=== PATIENT | female | born 1975 | race Caucasian/White ===

== ENCOUNTER 2016-08-16 23:49 | Emergency (ER) | payer SELFPAY ==
[~2016-08-16] VITALS: Ht 172.7 cm; Wt 90.0 kg
[2016-08-16 23:52] VITALS: TEMP 97.6
[2016-08-16] MEDS ORDERED: LOPRESSOR 225 MG/TAB PO (23:57)
[2016-08-16] MEDS ORDERED: CARDIZEM 30MG T30 MG PO (23:57)
[2016-08-17 01:14] LABS: HEMOGLOBIN 12.9 g/dl (12.5-16.0); MEAN CELL VOLUME 88 fl (80.0-100.0); MEAN CORPUSCULAR HEMOGLOBIN 28 pg (27.0-31.0); MEAN CORPUSCULAR HGB CONC 32 g/dl (33.0-37.0); MEAN PLATELET VOLUME 8.8 fl (7.4-10.4); PLATELET COUNT 553 K/mm3 (130-400); RED BLOOD COUNT 4.56 M/mm3 (4.10-5.30); REDCELL DISTRIBUTION WIDTH-CV 16.5 % (11.5-14.5); WHITE BLOOD COUNT 16.9 K/mm3 (4.8-10.8)
[2016-08-17 01:15] LABS: ADD PATHOLOGY DIFF REVIEW NO
[2016-08-17 01:24] LABS: ANISOCYTOSIS 1+; BAND 4 % (0-10); EOSINOPHIL 3 % (0-4); NEUTROPHILS 70 % (42.0-75.2); PLATELET ESTIMATE INCREASED (NORMAL); TOTAL CELLS COUNTED 100
[2016-08-17 01:33] LABS: ADJUSTED CALCIUM 10.1 mg/dL (8.4-10.2); ALBUMIN 3.5 gm/dL (3.5-5.0); BILIRUBIN,TOTAL 1.2 mg/dL (0.0-1.0); CALCIUM 9.7 mg/dL (8.4-10.2); TOTAL PROTEIN 8.1 gm/dL (6.4-8.2)
[2016-08-17 01:35] LABS: URIC ACID 7.6 mg/dL (2.5-6.2)
[2016-08-17 01:36] LABS: PH 5 (5-8); URINE APPEARANCE Cloudy; URINE BACTERIA Rare /hpf; URINE BILIRUBIN Negative (NEGATIVE); URINE BLOOD 1+ (NEGATIVE); URINE COLOR Amber; URINE GLUCOSE Negative (NEGATIVE); URINE KETONE Negative (NEGATIVE); URINE RBC >50 /hpf; URINE UROBILINOGEN >=4.0 mg/dL (NEGATIVE); URINE WBC >50 /hpf
[2016-08-17 01:39] LABS: ERYTHROCYTE SEDIMENTATION RATE 92 mm/hr (0-20)
[2016-08-17] MEDS ORDERED: CEPHALEXIN500 M1 PO (03:13)
[2016-08-17 03:25] VITALS: BP 115/91; PULSE 86
== END 2016-08-17 03:25 | disposition home or self-care (01) ==
LOC: COL.ER 23:49
PROVIDERS: Nurse Practitioner
DX: N39.0 Urinary tract infection, site not specified (principal); B96.89 Other specified bacterial agents as the cause of diseases classified elsewhere; M25.551 Pain in right hip; M25.562 Pain in left knee; M25.521 Pain in right elbow; F12.99 Cannabis use, unspecified with unspecified cannabis-induced disorder; I10 Essential (primary) hypertension; I50.9 Heart failure, unspecified; F17.210 Nicotine dependence, cigarettes, uncomplicated; Z90.49 Acquired absence of other specified parts of digestive tract

== ENCOUNTER 2016-08-18 23:35 | Inpatient (IN) | payer SELFPAY ==
[~2016-08-18] VITALS: Ht 172.7 cm; Wt 84.5 kg
[~2016-08-18 23:35] MED LIST: CARDIZEM 30MG T30 MG PO; CEPHALEXIN500 M1 PO; LOPRESSOR 225 MG/TAB PO
[2016-08-19] VITALS (738 sets, daily range): BP systolic 112–147; BP diastolic 70–111; PULSE 77–131; TEMP 97.4–99.2; O2SAT 77–100
[2016-08-19 00:01] LABS: BASO # 0.1 (0.0-0.2); BASO % 0.3 % (0.0-2.0); EOS # 0.1 (0.0-0.7); EOS % 0.3 % (0-4.0); GRAN # 14.2 (1.4-6.5); GRAN % 77.6 % (42.2-75.2); HEMATOCRIT 39.4 % (37.0-47.0); HEMOGLOBIN 12.9 g/dl (12.5-16.0); LYMPH % 10.8 % (20.0-51.0); MEAN CELL VOLUME 87 fl (80.0-100.0); MEAN CORPUSCULAR HEMOGLOBIN 29 pg (27.0-31.0); MEAN CORPUSCULAR HGB CONC 33 g/dl (33.0-37.0); MEAN PLATELET VOLUME 8.5 fl (7.4-10.4); MONO # 1.6 (0.1-0.6); MONO % 8.9 % (1.7-9.3); RED BLOOD COUNT 4.52 M/mm3 (4.10-5.30); REDCELL DISTRIBUTION WIDTH-CV 16.4 % (11.5-14.5); WHITE BLOOD COUNT 18.3 K/mm3 (4.8-10.8)
[2016-08-19 00:06] LABS: PLATELET COUNT 686 K/mm3 (130-400)
[2016-08-19 00:08] LABS: INR 1.1 (0.8-3.0); PROTHROMBIN TIME 12.6 SECONDS (9.7-12.8)
[2016-08-19 00:11] LABS: PARTIAL THROMBOPLASTIN TIME 33.3 SECONDS (26.0-37.0)
[2016-08-19 00:13] LABS: ALANINE AMINOTRANSFERASE 16 U/L (9-52); ALBUMIN 3.5 gm/dL (3.5-5.0); ALKALINE PHOSPHATASE 286 U/L (50-136); ANION GAP 13 mmol/L (7-16); BILIRUBIN,TOTAL 1.4 mg/dL (0.0-1.0); BLOOD UREA NITROGEN 14 mg/dL (7-17); CALCIUM 9.6 mg/dL (8.4-10.2); CARBON DIOXIDE 26 mmol/L (22-30); CHLORIDE 97 mmol/L (98-107); CREATININE, serum 0.69 mg/dL (0.52-1.25); GLUCOSE 214 mg/dL (74-106); POTASSIUM 4.2 mmol/L (3.4-5.0); SODIUM 137 mmol/L (137-145); TOTAL PROTEIN 8.1 gm/dL (6.4-8.2)
[2016-08-19 00:23] LABS: TROPONIN-I < 0.012 ng/mL (0.000-0.034)
[2016-08-19 00:31] LABS: C-REACTIVE PROTEIN 24.9 mg/dL (0.0-0.9)
[2016-08-19 02:15] LABS: PH 5 (5-8); URINE APPEARANCE Cloudy; URINE BACTERIA Rare /hpf; URINE BILIRUBIN Negative (NEGATIVE); URINE BLOOD Negative (NEGATIVE); URINE COLOR Amber; URINE GLUCOSE Negative (NEGATIVE); URINE KETONE Negative (NEGATIVE); URINE RBC >50 /hpf; URINE UROBILINOGEN >=4.0 mg/dL (NEGATIVE); URINE WBC >50 /hpf
[2016-08-19] MEDS ORDERED: ASPIRIN 81M81 MG/TA2 PO (03:53)
[2016-08-19] MEDS ORDERED: CARDIZEM120 MG PO (03:57)
[2016-08-19 06:34] LABS: HEMATOCRIT 37.4 % (37.0-47.0); MEAN CELL VOLUME 90 fl (80.0-100.0); MEAN CORPUSCULAR HEMOGLOBIN 29 pg (27.0-31.0); MEAN CORPUSCULAR HGB CONC 32 g/dl (33.0-37.0); MEAN PLATELET VOLUME 8.7 fl (7.4-10.4); PLATELET COUNT 630 K/mm3 (130-400); RED BLOOD COUNT 4.18 M/mm3 (4.10-5.30); REDCELL DISTRIBUTION WIDTH-CV 16.3 % (11.5-14.5); WHITE BLOOD COUNT 17.1 K/mm3 (4.8-10.8)
[2016-08-19 06:39] LABS: INR 1.1 (0.8-3.0); PROTHROMBIN TIME 12.7 SECONDS (9.7-12.8)
[2016-08-19 06:44] LABS: ADD PATHOLOGY DIFF REVIEW NO
[2016-08-19 06:49] LABS: ADJUSTED CALCIUM 10.1 mg/dL (8.4-10.2); BILIRUBIN,TOTAL 0.9 mg/dL (0.0-1.0); CALCIUM 9.3 mg/dL (8.4-10.2); CREATININE, serum 0.62 mg/dL (0.52-1.25); POTASSIUM 3.7 mmol/L (3.4-5.0); TOTAL PROTEIN 7.2 gm/dL (6.4-8.2)
[2016-08-19 06:58] LABS: TROPONIN-I 0.016 ng/mL (0.000-0.034)
[2016-08-19 07:03] LABS: BAND 17 % (0-10); NEUTROPHILS 67 % (42.0-75.2); TOTAL CELLS COUNTED 100
[2016-08-19 07:06] LABS: PLATELET ESTIMATE INCREASED (NORMAL)
[2016-08-19 13:23] LABS: SYNOVIAL FL. MONONUCLEAR 10.6 % (0-75); SYNOVIAL FL. POLYMORPHONUCLEAR 89.4 % (0-25)
[2016-08-19 13:31] LABS: SYNOVIAL FLUID APPEARANCE HAZY; SYNOVIAL FLUID COLOR RED
[2016-08-19 13:32] LABS: SYNOVIAL FL. MONONUCLEAR 9.5 % (0-75); SYNOVIAL FL. POLYMORPHONUCLEAR 90.5 % (0-25); SYNOVIAL FLUID APPEARANCE CLEAR; SYNOVIAL FLUID COLOR YELLOW
[2016-08-19 13:48] LABS: SYNOVIAL FLUID WBC 12840 /mm3 (200-600)
[2016-08-19 13:49] LABS: SYNOVIAL FLUID WBC 15410 /mm3 (200-600)
[2016-08-20] VITALS (1170 sets, daily range): BP systolic 149–167; BP diastolic 99–129; PULSE 106–132; TEMP 97.5–98.9; O2SAT 51–100
[2016-08-20 05:55] LABS: MEAN CELL VOLUME 92 fl (80.0-100.0); MEAN CORPUSCULAR HGB CONC 31 g/dl (33.0-37.0); MEAN PLATELET VOLUME 8.9 fl (7.4-10.4); PLATELET COUNT 631 K/mm3 (130-400); RED BLOOD COUNT 3.41 M/mm3 (4.10-5.30)
[2016-08-20 05:58] LABS: HEMATOCRIT 31.5 % (37.0-47.0); MEAN CORPUSCULAR HEMOGLOBIN 28 pg (27.0-31.0)
[2016-08-20 05:59] LABS: HEMOGLOBIN 9.7 g/dl (12.5-16.0); WHITE BLOOD COUNT 20.2 K/mm3 (4.8-10.8)
[2016-08-20 06:02] LABS: ADD PATHOLOGY DIFF REVIEW NO
[2016-08-20 06:08] LABS: BAND 5 % (0-10); NEUTROPHILS 91 % (42.0-75.2); TOTAL CELLS COUNTED 100
[2016-08-20 06:12] LABS: PLATELET ESTIMATE NORMAL (NORMAL)
[2016-08-20 06:56] LABS: ADJUSTED CALCIUM 10.1 mg/dL (8.4-10.2); BILIRUBIN,TOTAL 0.8 mg/dL (0.0-1.0); CALCIUM 9.3 mg/dL (8.4-10.2); CREATININE, serum 0.55 mg/dL (0.52-1.25); POTASSIUM 4.8 mmol/L (3.4-5.0); TOTAL PROTEIN 7.1 gm/dL (6.4-8.2)
[2016-08-20 07:48] LABS: SYN APPEARANCE Cloudy (()); SYN COLOR Yellow (())
[2016-08-20 07:51] LABS: SYN APPEARANCE Cloudy (()); SYN COLOR Amber (())
[2016-08-21] VITALS (943 sets, daily range): BP systolic 98–217; BP diastolic 54–147; PULSE 110–170; TEMP 98.1–100; O2SAT 53–100
[2016-08-21 06:05] LABS: BASO % 0.1 % (0.0-2.0); EOS % 0.1 % (0-4.0); GRAN # 16.4 (1.4-6.5); GRAN % 85.2 % (42.2-75.2); LYMPH # 1.2 (1.2-3.4); LYMPH % 6.1 % (20.0-51.0); MEAN CELL VOLUME 90 fl (80.0-100.0); MEAN CORPUSCULAR HGB CONC 32 g/dl (33.0-37.0); MEAN PLATELET VOLUME 8.5 fl (7.4-10.4); MONO # 1.5 (0.1-0.6); MONO % 7.6 % (1.7-9.3); PLATELET COUNT 590 K/mm3 (130-400); RED BLOOD COUNT 3.09 M/mm3 (4.10-5.30); REDCELL DISTRIBUTION WIDTH-CV 15.7 % (11.5-14.5); WHITE BLOOD COUNT 19.2 K/mm3 (4.8-10.8)
[2016-08-21 06:13] LABS: HEMATOCRIT 27.7 % (37.0-47.0); HEMOGLOBIN 8.9 g/dl (12.5-16.0); MEAN CORPUSCULAR HEMOGLOBIN 29 pg (27.0-31.0)
[2016-08-21 06:21] LABS: ADJUSTED CALCIUM 10.1 mg/dL (8.4-10.2); ALBUMIN 2.7 gm/dL (3.5-5.0); BILIRUBIN,TOTAL 0.6 mg/dL (0.0-1.0); CALCIUM 9.1 mg/dL (8.4-10.2); CREATININE, serum 0.48 mg/dL (0.52-1.25); TOTAL PROTEIN 6.7 gm/dL (6.4-8.2)
[2016-08-21 06:39] LABS: C-REACTIVE PROTEIN 14.1 mg/dL (0.0-0.9)
[2016-08-22] VITALS (250 sets, daily range): BP systolic 92–159; BP diastolic 78–110; PULSE 118–172; TEMP 98.6–99.2; O2SAT 85–100
[2016-08-22 06:00] LABS: MEAN CELL VOLUME 88 fl (80.0-100.0); MEAN CORPUSCULAR HGB CONC 32 g/dl (33.0-37.0); MEAN PLATELET VOLUME 8.4 fl (7.4-10.4); PLATELET COUNT 513 K/mm3 (130-400); RED BLOOD COUNT 2.99 M/mm3 (4.10-5.30); REDCELL DISTRIBUTION WIDTH-CV 15.3 % (11.5-14.5); WHITE BLOOD COUNT 16.2 K/mm3 (4.8-10.8)
[2016-08-22 06:03] LABS: HEMATOCRIT 26.4 % (37.0-47.0); HEMOGLOBIN 8.5 g/dl (12.5-16.0); MEAN CORPUSCULAR HEMOGLOBIN 28 pg (27.0-31.0)
[2016-08-22 06:04] LABS: ADD PATHOLOGY DIFF REVIEW NO
[2016-08-22 06:13] LABS: ALBUMIN 2.7 gm/dL (3.5-5.0); BILIRUBIN,TOTAL 1.1 mg/dL (0.0-1.0); CREATININE, serum 0.46 mg/dL (0.52-1.25); POTASSIUM 3.7 mmol/L (3.4-5.0); TOTAL PROTEIN 6.7 gm/dL (6.4-8.2)
[2016-08-22 06:23] LABS: BAND 6 % (0-10); NEUTROPHILS 78 % (42.0-75.2); TOTAL CELLS COUNTED 100
[2016-08-22 06:32] LABS: C-REACTIVE PROTEIN 16.6 mg/dL (0.0-0.9)
== END 2016-08-22 15:10 | disposition short-term general hospital (02) | DRG 309 ==
LOC: COL.ER 23:35 → ICU 08-19 01:19
PROVIDERS: Emergency Medicine; Family Medicine; Internal Medicine; Orthopaedic Surgery Sports Medicine
PROC: 0R9 Upper Joints, Drainage (ICD-10-PCS; 2016-08-19)
PROC: 0S9D4ZZ Drainage of Left Knee Joint, Percutaneous Endoscopic Approach (ICD-10-PCS; principal; 2016-08-19 20:00)
PROC: 0S9C4ZZ Drainage of Right Knee Joint, Percutaneous Endoscopic Approach (ICD-10-PCS; 2016-08-19 20:00)
DX: I48.91 Unspecified atrial fibrillation (principal); I38 Endocarditis, valve unspecified; M00.862 Arthritis due to other bacteria, left knee; M00.861 Arthritis due to other bacteria, right knee; M00.821 Arthritis due to other bacteria, right elbow; M00.832 Arthritis due to other bacteria, left wrist; E11.9 Type 2 diabetes mellitus without complications; F17.210 Nicotine dependence, cigarettes, uncomplicated; F15.90 Other stimulant use, unspecified, uncomplicated
CPT/HCPCS: 90791-AI; 99223-AI; 99233-AI; 99239; A4315; C1751; G9654; J0282; J0696; J1100; J1170; J1630; J1644; J1650; J1815; J1885; J2060; J2185; J2270; J2405; J2704; J2710; J2765; J3010; J3370; J3411; J7030; J7050; J7060; Q9967

== ENCOUNTER 2016-09-16 13:58 | Emergency (ER) | payer SELFPAY ==
[~2016-09-16] VITALS: Ht 172.7 cm; Wt 72.7 kg
[~2016-09-16 13:58] MED LIST changes: +ASPIRIN 81M81 MG/TA2 PO; +CARDIZEM120 MG PO
[2016-09-16 14:10] VITALS: TEMP 97.7
[2016-09-16 15:38] LABS: MEAN CELL VOLUME 88 fl (80.0-100.0); MEAN CORPUSCULAR HGB CONC 30 g/dl (33.0-37.0); MEAN PLATELET VOLUME 8.7 fl (7.4-10.4); PLATELET COUNT 504 K/mm3 (130-400); RED BLOOD COUNT 2.72 M/mm3 (4.10-5.30); REDCELL DISTRIBUTION WIDTH-CV 15.3 % (11.5-14.5); WHITE BLOOD COUNT 4.1 K/mm3 (4.8-10.8)
[2016-09-16 15:42] LABS: ADD PATHOLOGY DIFF REVIEW NO; HEMATOCRIT 23.9 % (37.0-47.0); HEMOGLOBIN 7.2 g/dl (12.5-16.0); MEAN CORPUSCULAR HEMOGLOBIN 26 pg (27.0-31.0)
[2016-09-16 15:46] LABS: INR 3.4 (0.8-3.0); PROTHROMBIN TIME 40.1 SECONDS (9.7-12.8)
[2016-09-16 15:48] LABS: PARTIAL THROMBOPLASTIN TIME 45.7 SECONDS (26.0-37.0)
[2016-09-16 15:50] LABS: ADJUSTED CALCIUM 9.8 mg/dL (8.4-10.2); ALANINE AMINOTRANSFERASE 13 U/L (9-52); ALBUMIN 2.9 gm/dL (3.5-5.0); ALKALINE PHOSPHATASE 137 U/L (50-136); ANION GAP 12 mmol/L (7-16); BILIRUBIN,TOTAL 0.7 mg/dL (0.0-1.0); BLOOD UREA NITROGEN 10 mg/dL (7-17); CALCIUM 8.9 mg/dL (8.4-10.2); CARBON DIOXIDE 28 mmol/L (22-30); CHLORIDE 95 mmol/L (98-107); CREATININE, serum 0.81 mg/dL (0.52-1.25); GLUCOSE 150 mg/dL (74-106); POTASSIUM 3.2 mmol/L (3.4-5.0); SODIUM 136 mmol/L (137-145); TOTAL PROTEIN 7.1 gm/dL (6.4-8.2)
[2016-09-16 15:56] LABS: B-TYPE NATRIURETIC PEPTIDE 1580 pg/mL (0-125)
[2016-09-16 15:59] LABS: ACETAMINOPHEN < 10 ug/mL (10-30); SALICYLATE < 1.0 mg/dL
[2016-09-16 16:03] LABS: ERYTHROCYTE SEDIMENTATION RATE > 140 mm/hr (0-20); TROPONIN-I < 0.012 ng/mL (0.000-0.034)
[2016-09-16 16:27] LABS: BAND 29 % (0-10); EOSINOPHIL 1 % (0-4); MYELOCYTE 1 % (0-0); NEUTROPHILS 29 % (42.0-75.2); TOTAL CELLS COUNTED 100
[2016-09-16 16:28] LABS: PLATELET ESTIMATE INCREASED (NORMAL)
[2016-09-16 16:29] LABS: HYPOCHROMIA 2+
[2016-09-16 17:05] LABS: HYALINE CAST >12 /lpf; PH 5 (5-8); SQUAMOUS EPITHELIAL 0-2 /hpf; URINE APPEARANCE Cloudy; URINE BACTERIA None Seen /hpf; URINE BILIRUBIN Negative (NEGATIVE); URINE BLOOD Negative (NEGATIVE); URINE COLOR Amber; URINE GLUCOSE Negative (NEGATIVE); URINE KETONE Negative (NEGATIVE); URINE UROBILINOGEN Negative (NEGATIVE)
[2016-09-16 17:06] LABS: AMPHETAMINE URINE POSITIVE; BARBITURATES URINE NEGATIVE; BENZODIAZEPINES URINE POSITIVE; BUPRENORPHINE URINE NEGATIVE; METHADONE URINE NEGATIVE; OPIATES URINE POSITIVE; OXYCODONE URINE NEGATIVE; PHENCYCLIDINE URINE NEGATIVE; PROPOXYPHENE URINE NEGATIVE; THC CANNABINOIDS URINE NEGATIVE
[2016-09-16 23:40] VITALS: BP 120/68; PULSE 62
== END 2016-09-16 23:44 | disposition short-term general hospital (02) ==
LOC: COL.ER 13:58
PROVIDERS: Emergency Medicine
DX: M00.9 Pyogenic arthritis, unspecified (principal); I25.10 Atherosclerotic heart disease of native coronary artery without angina pectoris; I48.91 Unspecified atrial fibrillation; F17.210 Nicotine dependence, cigarettes, uncomplicated; E11.9 Type 2 diabetes mellitus without complications; D64.9 Anemia, unspecified; D70.9 Neutropenia, unspecified; Z79.82 Long term (current) use of aspirin
CPT/HCPCS: C1751; C1894; J1170; J1644; J2250; J3010; J3370; J7030; J7050